=== PATIENT | female | born 1995 | race American Indian/Alaskan Native ===

== ENCOUNTER 2020-01-10 23:01 | Emergency (ER) | payer SELFPAY ==
--- NOTE | 2020-01-10 23:55 | Emergency Department Report ---
<JO ANN PRESCOTT - Last Filed: 01/10/20 23:37> ED Altered Mental Status HPI - General Chief Complaint: Altered Mental Status Stated Complaint: MH EVALUATION Time Seen by Provider: 01/10/20 23:08 Source: EMS Mode of arrival: Stretcher Limitations: Altered Mental Status - History of Present Illness Initial Comments: Patient is 24-year-old female, unknown to me and patient has never been in this hospital before there is no previous medical record. Patient brought to the emergency room via EMS after patient was found walking in the street shouting agitated and opening people car doors. Patient received Haldol and Versed by EMS secondary to agitation. Upon arrival to the ER patient is heavily sedated, obtunded and not responding to voice stimuli however she will respond to painful stimuli. Patient vital signs stable with an oxygen saturation of 100% on room air. MD Complaint: altered mental status, confusion Treatments Prior to Arrival: other pre-hosp med (haldol,versed ) - Related Data Allergies Allergy/AdvReac Type Severity Reaction Status Date / Time Unable to Assess Allergy Unverified 01/10/20 23:20 ED Review of Systems Comment: Unobtainable due to pts medical conditions ED Physical Exam - General Limitations: Altered Mental Status General appearance: obtunded - Head Head exam: Present: atraumatic, normocephalic, normal inspection - Eye Eye exam: Present: normal appearance, PERRL - ENT ENT exam: Present: normal exam, normal orophraynx, mucous membranes moist - Neck Neck exam: Present: normal inspection, full ROM. Absent: tenderness, meningismus - Respiratory Respiratory exam: Present: normal lung sounds bilaterally - Cardiovascular Cardiovascular Exam: Present: regular rate, normal rhythm, normal heart sounds - GI/Abdominal GI/Abdominal exam: Present: soft, normal bowel sounds. Absent: distended, tenderness, guarding, rebound, rigid, organomegaly, mass, bruit, pulsatile mass, hernia - Extremities Exam Extremities exam: Present: normal inspection, full ROM, normal capillary refill. Absent: pedal edema, calf tenderness - Back Exam Back exam: Present: normal inspection. Absent: CVA tenderness (R), CVA tenderness (L) - Neurological Exam Neurological exam: Present: altered - Skin Skin exam: Present: warm, normal color ED Disposition Clinical Impression: Acute psychosis, Altered mood associated with [place] Disposition: DC/TX-65 PSY HOSP/PSY UNIT Condition: Stable Referrals: PRIMARY CARE, [Primary Care Provider] - 3-5 Days <MARYJO TREVIÑO - Last Filed: 01/11/20 07:45> ED Review of Systems ROS: Stated complaint: MH EVALUATION Other details as noted in HPI ED Course Vital Signs 01/10/20 01/11/20 01/11/20 23:18 01:55 03:00 Pulse Rate 62 72 85 Respiratory 16 16 16 Rate Blood Pressure 96/58 106/72 115/77 [Right] O2 Sat by Pulse 99 97 97 Oximetry 01/11/20 07:00 Pulse Rate 99 H Respiratory 16 Rate Blood Pressure 135/72 [Right] O2 Sat by Pulse 97 Oximetry - Reevaluation(s) Reevaluation #1: 01/11/20 07:44 Patient has increased agitation. She has been aggressive towards staff members. I ordered chemical restraint with IM Geodon. She is now and seclusion room. - Lab Data Result diagrams: 01/10/20 23:42 01/10/20 23:42 Lab Results 01/10/20 01/10/20 01/10/20 Range/Units 23:37 23:42 23:42 WBC 10.0 (4.5-11.0) K/mm3 RBC 3.83 (3.65-5.03) M/mm3 Hgb 12.9 (10.1-14.3) gm/dl Hct 37.9 (30.3-42.9) % MCV 99 H (79-97) fl MCH 34 H (28-32) pg MCHC 34 (30-34) % RDW 12.7 L (13.2-15.2) % Plt Count 236 (140-440) K/mm3 Tyrrell % (Auto) Needle Loom Operator Helper Add Manual Diff Complete Total Counted 100 Seg Neuts % (Manual) 74.0 H (40.0-70.0) % Band Neutrophils % 0 % Lymphocytes % (Manual) 24.0 (13.4-35.0) % Reactive Lymphs % (Man) 0 % Monocytes % (Manual) 2.0 (0.0-7.3) % Eosinophils % (Manual) 0 (0.0-4.3) % Basophils % (Manual) 0 (0.0-1.8) % Metamyelocytes % 0 % Myelocytes % 0 % Promyelocytes % 0 % Blast Cells % 0 % Nucleated RBC % Not Reportable Seg Neutrophils # Man 7.4 (1.8-7.7) K/mm3 Band Neutrophils # 0.0 K/mm3 Lymphocytes # (Manual) 2.4 (1.2-5.4) K/mm3 Abs React Lymphs (Man) 0.0 K/mm3 Monocytes # (Manual) 0.2 (0.0-0.8) K/mm3 Eosinophils # (Manual) 0.0 (0.0-0.4) K/mm3 Basophils # (Manual) 0.0 (0.0-0.1) K/mm3 Metamyelocytes # 0.0 K/mm3 Myelocytes # 0.0 K/mm3 Promyelocytes # 0.0 K/mm3 Blast Cells # 0.0 K/mm3 WBC Morphology Not Reportable Hypersegmented Neuts Not Reportable Hyposegmented Neuts Not Reportable Hypogranular Neuts Not Reportable Smudge Cells Not Reportable Toxic Granulation Not Reportable Toxic Vacuolation Not Reportable Dohle Bodies Not Reportable Pelger-Huet Anomaly Not Reportable Dionna Rods Not Reportable Platelet Estimate Consistent w auto Clumped Platelets Not Reportable Plt Clumps, EDTA Not Reportable Large Platelets Not Reportable Giant Platelets Not Reportable Platelet Satelliting Not Reportable Plt Morphology Comment Not Reportable RBC Morphology Not Reportable Dimorphic RBCs Not Reportable Polychromasia Not Reportable Hypochromasia Not Reportable Poikilocytosis Not Reportable Anisocytosis Not Reportable Microcytosis Not Reportable Macrocytosis Not Reportable Spherocytes Not Reportable Pappenheimer Bodies Not Reportable Sickle Cells Not Reportable Target Cells Not Reportable Tear Drop Cells Not Reportable Ovalocytes Not Reportable Helmet Cells Not Reportable Nolasco-Wagoner Bodies Not Reportable [place] Rings Not Reportable [place] Cells Not Reportable Bite Cells Not Reportable Crenated Cell Not Reportable Elliptocytes Not Reportable Acanthocytes (Spur) Not Reportable Rouleaux Not Reportable Hemoglobin C Crystals Not Reportable Schistocytes Not Reportable Malaria parasites Not Reportable Jm Bodies Not Reportable Hem Pathologist Commnt No Sodium 135 L (137-145) mmol/L Potassium 3.5 L (3.6-5.0) mmol/L Chloride 96.4 L (98-107) mmol/L Carbon Dioxide 22 (22-30) mmol/L Anion Gap 20 mmol/L BUN 12 (7-17) mg/dL Creatinine 0.7 (0.6-1.2) mg/dL Estimated GFR > 60 ml/min BUN/Creatinine Ratio 17 % Glucose 93 (65-100) mg/dL POC Glucose 91 (70-105) mg/dL Calcium 9.5 (8.4-10.2) mg/dL HCG, Qual (Negative) Urine Color (Yellow) Urine Turbidity (Clear) Urine pH (5.0-7.0) Ur Specific [place] (1.003-1.030) Urine Protein (Negative) mg/dL Urine Glucose (UA) (Negative) mg/dL Urine Ketones (Negative) mg/dL Urine Blood (Negative) Urine Nitrite (Negative) Urine Bilirubin (Negative) Urine Urobilinogen (<2.0) mg/dL Ur Leukocyte Esterase (Negative) Urine WBC (Auto) (0.0-6.0) /HPF Urine RBC (Auto) (0.0-6.0) /HPF U Epithel Cells (Auto) (0-13.0) /HPF Urine Bacteria (Auto) (Negative) /HPF Hyaline Casts /LPF Urine Mucus /HPF Salicylates (2.8-20.0) mg/dL Urine Opiates Screen Urine Methadone Screen Acetaminophen (10.0-30.0) ug/mL Ur Barbiturates Screen Ur Phencyclidine Scrn Ur Amphetamines Screen U Benzodiazepines Scrn Urine Cocaine Screen U Marijuana (THC) Screen Drugs of Abuse Note Plasma/Serum Alcohol (0-0.07) % 01/10/20 01/10/20 01/10/20 Range/Units 23:42 23:42 23:42 WBC (4.5-11.0) K/mm3 RBC (3.65-5.03) M/mm3 Hgb (10.1-14.3) gm/dl Hct (30.3-42.9) % MCV (79-97) fl MCH (28-32) pg MCHC (30-34) % RDW (13.2-15.2) % Plt Count (140-440) K/mm3 Tyrrell % (Auto) Add Manual Diff Total Counted Seg Neuts % (Manual) (40.0-70.0) % Band Neutrophils % % Lymphocytes % (Manual) (13.4-35.0) % Reactive Lymphs % (Man) % Monocytes % (Manual) (0.0-7.3) % Eosinophils % (Manual) (0.0-4.3) % Basophils % (Manual) (0.0-1.8) % Metamyelocytes % % Myelocytes % % Promyelocytes % % Blast Cells % % Nucleated RBC % Seg Neutrophils # Man (1.8-7.7) K/mm3 Band Neutrophils # K/mm3 Lymphocytes # (Manual) (1.2-5.4) K/mm3 Abs React Lymphs (Man) K/mm3 Monocytes # (Manual) (0.0-0.8) K/mm3 Eosinophils # (Manual) (0.0-0.4) K/mm3 Basophils # (Manual) (0.0-0.1) K/mm3 Metamyelocytes # K/mm3 Myelocytes # K/mm3 Promyelocytes # K/mm3 Blast Cells # K/mm3 WBC Morphology Hypersegmented Neuts Hyposegmented Neuts Hypogranular Neuts Smudge Cells Toxic Granulation Toxic Vacuolation Dohle Bodies Pelger-Huet Anomaly Dionna Rods Platelet Estimate Clumped Platelets Plt Clumps, EDTA Large Platelets Giant Platelets Platelet Satelliting Plt Morphology Comment RBC Morphology Dimorphic RBCs Polychromasia Hypochromasia Poikilocytosis Anisocytosis Microcytosis Macrocytosis Spherocytes Pappenheimer Bodies Sickle Cells Target Cells Tear Drop Cells Ovalocytes Helmet Cells Nolasco-Wagoner Bodies [place] Rings [place] Cells Bite Cells Crenated Cell Elliptocytes Acanthocytes (Spur) Rouleaux Hemoglobin C Crystals Schistocytes Malaria parasites Jm Bodies Hem Pathologist Commnt Sodium (137-145) mmol/L Potassium (3.6-5.0) mmol/L Chloride (98-107) mmol/L Carbon Dioxide (22-30) mmol/L Anion Gap mmol/L BUN (7-17) mg/dL Creatinine (0.6-1.2) mg/dL Estimated GFR ml/min BUN/Creatinine Ratio % Glucose (65-100) mg/dL POC Glucose (70-105) mg/dL Calcium (8.4-10.2) mg/dL HCG, Qual Negative (Negative) Urine Color (Yellow) Urine Turbidity (Clear) Urine pH (5.0-7.0) Ur Specific [place] (1.003-1.030) Urine Protein (Negative) mg/dL Urine Glucose (UA) (Negative) mg/dL Urine Ketones (Negative) mg/dL Urine Blood (Negative) Urine Nitrite (Negative) Urine Bilirubin (Negative) Urine Urobilinogen (<2.0) mg/dL Ur Leukocyte Esterase (Negative) Urine WBC (Auto) (0.0-6.0) /HPF Urine RBC (Auto) (0.0-6.0) /HPF U Epithel Cells (Auto) (0-13.0) /HPF Urine Bacteria (Auto) (Negative) /HPF Hyaline Casts /LPF Urine Mucus /HPF Salicylates < 0.3 L (2.8-20.0) mg/dL Urine Opiates Screen Urine Methadone Screen Acetaminophen 5.0 L (10.0-30.0) ug/mL Ur Barbiturates Screen Ur Phencyclidine Scrn Ur Amphetamines Screen U Benzodiazepines Scrn Urine Cocaine Screen U Marijuana (THC) Screen Drugs of Abuse Note Plasma/Serum Alcohol (0-0.07) % 01/10/20 01/10/20 01/10/20 Range/Units 23:42 Unknown Unknown WBC (4.5-11.0) K/mm3 RBC (3.65-5.03) M/mm3 Hgb (10.1-14.3) gm/dl Hct (30.3-42.9) % MCV (79-97) fl MCH (28-32) pg MCHC (30-34) % RDW (13.2-15.2) % Plt Count (140-440) K/mm3 [place]rell % (Auto) Add Manual Diff Total Counted Seg Neuts % (Manual) (40.0-70.0) % Band Neutrophils % % Lymphocytes % (Manual) (13.4-35.0) % Reactive Lymphs % (Man) % Monocytes % (Manual) (0.0-7.3) % Eosinophils % (Manual) (0.0-4.3) % Basophils % (Manual) (0.0-1.8) % Metamyelocytes % % Myelocytes % % Promyelocytes % % Blast Cells % % Nucleated RBC % Seg Neutrophils # Man (1.8-7.7) K/mm3 Band Neutrophils # K/mm3 Lymphocytes # (Manual) (1.2-5.4) K/mm3 Abs React Lymphs (Man) K/mm3 Monocytes # (Manual) (0.0-0.8) K/mm3 Eosinophils # (Manual) (0.0-0.4) K/mm3 Basophils # (Manual) (0.0-0.1) K/mm3 Metamyelocytes # K/mm3 Myelocytes # K/mm3 Promyelocytes # K/mm3 Blast Cells # K/mm3 WBC Morphology Hypersegmented Neuts Hyposegmented Neuts Hypogranular Neuts Smudge Cells Toxic Granulation Toxic Vacuolation Dohle Bodies Pelger-Huet Anomaly Dionna Rods Platelet Estimate Clumped Platelets Plt Clumps, EDTA Large Platelets Giant Platelets Platelet Satelliting Plt Morphology Comment RBC Morphology Dimorphic RBCs Polychromasia Hypochromasia Poikilocytosis Anisocytosis Microcytosis Macrocytosis Spherocytes Pappenheimer Bodies Sickle Cells Target Cells Tear Drop Cells Ovalocytes Helmet Cells Nolasco-Wagoner Bodies [place] Rings [place] Cells Bite Cells Crenated Cell Elliptocytes Acanthocytes (Spur) Rouleaux Hemoglobin C Crystals Schistocytes Malaria parasites Jm Bodies Hem Pathologist Commnt Sodium (137-145) mmol/L Potassium (3.6-5.0) mmol/L Chloride (98-107) mmol/L Carbon Dioxide (22-30) mmol/L Anion Gap mmol/L BUN (7-17) mg/dL Creatinine (0.6-1.2) mg/dL Estimated GFR ml/min BUN/Creatinine Ratio % Glucose (65-100) mg/dL POC Glucose (70-105) mg/dL Calcium (8.4-10.2) mg/dL HCG, Qual (Negative) Urine Color Yellow (Yellow) Urine Turbidity Cloudy (Clear) Urine pH 6.0 (5.0-7.0) Ur Specific [place] 1.023 (1.003-1.030) Urine Protein 100 mg/dl (Negative) mg/dL Urine Glucose (UA) Neg (Negative) mg/dL Urine Ketones 80 (Negative) mg/dL Urine Blood Mod (Negative) Urine Nitrite Neg (Negative) Urine Bilirubin Neg (Negative) Urine Urobilinogen 4.0 (<2.0) mg/dL Ur Leukocyte Esterase Sm (Negative) Urine WBC (Auto) 16.0 H (0.0-6.0) /HPF Urine RBC (Auto) 13.0 (0.0-6.0) /HPF U Epithel Cells (Auto) 3.0 (0-13.0) /HPF Urine Bacteria (Auto) 1+ (Negative) /HPF Hyaline Casts 1 /LPF Urine Mucus 3+ /HPF Salicylates (2.8-20.0) mg/dL Urine Opiates Screen Presumptive negative Urine Methadone Screen Presumptive negative Acetaminophen (10.0-30.0) ug/mL Ur Barbiturates Screen Presumptive negative Ur Phencyclidine Scrn Presumptive negative Ur Amphetamines Screen Presumptive negative U Benzodiazepines Scrn Presumptive positive Urine Cocaine Screen Presumptive negative U Marijuana (THC) Screen Presumptive positive Drugs of Abuse Note Disclamer Plasma/Serum Alcohol < 0.01 (0-0.07) % - Medical Decision Making I have reviewed labs obtained. Patient is currently medically clear for psychiatric care. Critical care attestation.: If time is entered above; I have spent that time in minutes in the direct care of this critically ill patient, excluding procedure time. ED Disposition Is pt being admited?: No Does the pt Need Aspirin: No
[2020-01-11 00:06] LABS: Hematocrit 37.9 % (30.3-42.9); Hemoglobin 12.9 gm/dl (10.1-14.3); Mean Corpuscular HGB Conc 34 % (30-34); Mean Corpuscular Volume 99 fl (79-97); Platelet Count 236 K/mm3 (140-440); Red Blood Count 3.83 M/mm3 (3.65-5.03); Red Cell Distribution Width 12.7 % (13.2-15.2)
[2020-01-11 00:25] LABS: Blood Urea Nitrogen 12 mg/dL (7-17); Calcium 9.5 mg/dL (8.4-10.2); Hemolysis Index 20
[2020-01-11 00:26] LABS: BUN/Creatinine Ratio 17
[2020-01-11 01:36] LABS: Bacteria,Urine 1+ /HPF (Negative); Bilirubin,Urine NEG (Negative); Blood,Urine MOD (Negative); Color,Urine Yellow (Yellow); Hyaline Casts,Urine 1 /LPF; Mucus,Urine 3+ /HPF
[2020-01-11 01:42] LABS: Amphetamine Screen,Urine PRESUMPTIVE NEGATIVE; Benzodiazepines Screen,Urine PRESUMPTIVE POSITIVE; Cannabinoid Screen,Urine PRESUMPTIVE POSITIVE; Cocaine Screen,Urine PRESUMPTIVE NEGATIVE; Methadone Screen,Urine PRESUMPTIVE NEGATIVE; Opiate Screen,Urine PRESUMPTIVE NEGATIVE
[2020-01-11 03:00] LABS: Basophils % (Manual) 0 % (0.0-1.8); Eosinophils % (Manual) 0 % (0.0-4.3); Platelet Estimate Consistent w Auto; Total Cells Counted 100
[2020-01-11] MEDS ORDERED: ZIPRASIDONE MESYLATE 20 MG VIAL IM ONE (07:40)
[2020-01-11] MEDS ORDERED: ZIPRASIDONE MESYLATE 20 MG VIAL IM STA (07:42)
[2020-01-12 07:42] VITALS: BP 110/76
--- NOTE | 2020-01-12 09:39 | Consultation ---
History of Present Illness - Reason for Consult Consult date: 01/12/20 Reason for consult: AMS - History of Present Psychiatric Illness The patient's medical record was reviewed and the patient's progress was discussed with the nursing staff. The nurse note states the patient is alert but confused. She doesn't give me an accurate name or birthday. Pt repeating the branden e questions and has to be reoriented constantly. The nurse and the sitter caring for the patient today states she has given "four different names." The sitter also says the patient attempted to elope about three times yesterday. Jamil Dodd is a 24y/o female patient who [place] after being agitated, shouting and opening people's car doors. The patient is not previously known to me. During my interview with the patient, she is talking on the phone with someone. The nurse asks her to get off to speak with me. I lead the patient to a place to speak in private. The patient is tearful. She is paranoid and not forthcoming. When I greet the person, and asks her what brought her to the ER, she becomes very tearful and states "I wasn't even doing anything. Then all these people are accusing me." She says "all I know is I was at the airport and people kept taking my lift." When asking the patient why is she giving the staff different name, she looks at me and states "because that's my name. Mellissa is my name. That's what they keep telling me." When asking the patient who keeps telling her that she says "everybody." She denies any psychiatric history; no past suicide attempts, no outpatient psych admits or psych medications. The patient also denies any hallucinations. She states "yall are picking on me. Why are you asking me these questions." The patient denies all illicit drug use except "weed." She also says she "drinks everyday, all day." She then says "every second." When asking the patient what did she drinks, she said "everything." She verbalizes feeling "a little shaky" from not drinking. She is crying throughout the interview. The patient given me permission to call her grandmaEricka at [phone]. Her grandma says the patient's name is not Jaelyn and she doesn't know why she keeps saying that. She says the patient has been acting crazy and they don't know what's wrong with her. The grandma confirms that the patient has never seen a psychiatrist. The patient's brother, Sudhir, then gets on the phone. He says the patient hallucinates; sees snakes, thinks people are following her, and hears things. He says, "she needs help and is not telling you the truth." The patient then starts sobbing, as she could here what her brother is saying. She says "they are lying on me. Please stop lying on me." The brother also confirms that the patient "drinks a lot everyday." PAST PSYCHIATRIC HISTORY: Diagnoses: Denies Suicide attempts or Self-harm behavior: Denies Prior psychiatric hospitalizations: Denies Substance Abuse history: "weed and alcohol" Previous psychiatric medications tried: Denies Outpatient treatment: Denies PAST MEDICAL HISTORY: HTN Family Psychiatric History None reported or documented SOCIAL HISTORY Marital Status: Single Living Arrangements: With grandma Employment Status: Unemployed Access to guns/weapons: Denies Education: some college History of Abuse: patient denies Legal History: patient denies ROS: Constitutional: Negative for weight loss ENT: Negative for stridor Respiratory: Negative for cough or hemoptysis All other systems reviewed and are negative MENTAL STATUS General Appearance and Behavior: age appropriate, poor eye contact, upset, not forthcoming Cooperation: Cooperative, not forthcoming Psychomotor Behavior: within normal limits Mood: "okay" Affect and affective range: Tearful Thought Process: goal directed Thought Content: Illogical Speech: Normal volume and Regular rate and rhythm Intellectual Functioning Average Suicidal Ideation: Denies Homicidal Ideation: Denies Hallucinations: Denies, but family states she does Delusions: Yes, paranoid Impulse Control: Limited Insight and Judgment: Limited Memory: Limited Attention: Limited Orientation: alert and oriented - Psychiatric problem (1) Schizoaffective Disorder Current Visit: Yes Status: Acute (2) Alcohol abuse Current Visit: Yes Status: Acute (3) Generalized Anxiety Disorder RECOMMENDATIONS MEDICATIONS: CIWA Start Risperidon 0.25mg po BID Start Depakote DR 125mg po BID Start Vistaril 25mg po BID Start Trazodone 50mg po qhs Start geodon 10mg IM q4h prn agitation Risks, benefits and alternatives of medications discussed with the patient, questions answered and consent obtained from patient. PSYCHOTHERAPY: Supportive psychotherapy provided MEDICAL: Per primary team WALL ATTENDANT: Yes DISPOSITION: Recommend acute inpatient psychiatric treatment LEGAL STATUS: 1013 FOLLOW-UP: Will follow Medications and Allergies Allergies Allergy/AdvReac Type Severity Reaction Status Date / Time No Known Allergies Allergy Unverified 01/11/20 19:36 Home Medications Medication Instructions Recorded Confirmed Last Taken Type No Known Home Medications [No 01/11/20 01/11/20 Unknown History Reported Home Medications] Mental Status Exam - Vital signs Last Vital Signs Temp 98.0 F 01/12/20 07:41 Pulse 78 01/12/20 07:41 Resp 18 01/12/20 07:41 BP 110/76 01/12/20 07:41 Pulse Ox 100 01/12/20 07:41 Results Result Diagrams: 01/10/20 23:42 01/10/20 23:42 All other labs normal.
[2020-01-12] MEDS ORDERED: risperiDONE 0.25 MG TAB PO SCH (10:00)
[2020-01-12] MEDS ORDERED: ZIPRASIDONE MESYLATE 20 MG VIAL IM PRN (10:01)
[2020-01-12] MEDS ORDERED: chlordiazePOXIDE 25 MG CAP PO PRN ×2 (10:01)
[2020-01-12] MEDS ORDERED: DIVALPROEX DR 125 MG TAB PO SCH (11:00)
[2020-01-12] MEDS ORDERED: hydrOXYzine PAMOATE 25 MG CAP PO SCH (11:00)
[2020-01-12] MEDS ORDERED: traZODone 50 MG TAB PO SCH (22:00)
== END 2020-01-12 16:00 ==
LOC: ED 23:01 → EEVIPCON 23:01 → ED 01-12 16:00
DX: F23 Brief psychotic disorder (principal); F30.9 Manic episode, unspecified
CPT/HCPCS: 36415; 80048; 80307; 81001; 82962; 84703; 85007; 85025; 87086; 96372; 99285; J3486; Q0177; 80320; G0480